=== PATIENT | female | born 1980 | race Caucasian/White ===

== ENCOUNTER → 2021-04-04 09:59 | Outpatient (CLI) | payer OTHER, SELFPAY ==
--- NOTE | ~2021-04-04 | US_ITS ---
EXAMINATION: US pelvic complete w TV DATE: 04/04/2021 10:54 INDICATION: Menorrhagia TECHNIQUE: Multiple transabdominal and endovaginal sonographic images of the pelvis were obtained. COMPARISON: None. FINDINGS: The uterus measures 6.9 x 4.4 x 5.8 cm. The endometrial complex measures 11 mm. The right o vary measures 2.4 x 1.8 x 1.9 cm. The left ovary measures 2.1 x 1.5 x 1.7 cm. There is normal vascula r flow in the ovaries. There is no free fluid in the pelvis. IMPRESSION: 1. No sonographic correlate for the patient's symptoms. Reviewed, dictated and finalized at location A. [employer]
== END ==
PROVIDERS: Visit Provider Obstetrics & Gynecology
DX: N92.0 Excessive and frequent menstruation with regular cycle (principal)
CPT/HCPCS: 76830; 76856

== ENCOUNTER 2023-10-16 14:50 | Outpatient (CLI) | payer OTHER, SELFPAY ==
--- NOTE | ~2023-10-16 | CT_ITS ---
EXAMINATION: CT sinus wo con DATE: 10/16/2023 15:01 INDICATION: Chronic sinusitis. TECHNIQUE: Computed tomography (CT) of the paranasal sinuses was performed without intravenous contra st. Iterative reconstruction technique was employed. The dose-length product was 276.47 mGy-cm. COMPARISON: None FINDINGS: There is complete opacification of the frontal sinuses and right ethmoid, maxillary, and sp henoid sinuses. There is near complete opacification of the left ethmoid and sphenoid sinuses. There is moderate mucosal thickening in left maxillary sinus. There is sclerosis of the sinus carrillo. There are erosions of some of the ethmoid septa and nasal turbinates. There is mucosal thickening in the na yamilex cavity. There is rightward deviation of the nasal septum. The ostiomeatal units are occluded. IMPRESSION: 1. Pansinus disease, likely sinonasal polyposis. 2. Rightward deviation of the nasal septum. Reviewed, dictated and finalized at location A.
== END 2023-10-16 14:51 ==
LOC: MICIMG 14:51
PROVIDERS: PCP Internal Medicine; Visit Provider Otolaryngology
DX: J32.9 Chronic sinusitis, unspecified (principal); J34.2 Deviated nasal septum
CPT/HCPCS: 70486